=== PATIENT | female | born 1970 | race Caucasian/White ===

== ENCOUNTER → 2025-03-24 10:12 | Outpatient (REF) | payer BC, SELFPAY | LOC: RAD 10:12 | PROVIDERS: ATTENDING PHYSICIAN Chiropractor | DX: S13.4XXA Sprain of ligaments of cervical spine, initial encounter (principal); S33.5XXA Sprain of ligaments of lumbar spine, initial encounter; S23.3XXA Sprain of ligaments of thoracic spine, initial encounter | CPT/HCPCS: 72040; 72072; 72100 ==

== ENCOUNTER → 2025-10-06 14:03 | Outpatient (REF) | payer BC, SELFPAY | LOC: RAD 14:03 | PROVIDERS: ATTENDING PHYSICIAN Neurological Surgery | DX: M54.12 Radiculopathy, cervical region (principal) | CPT/HCPCS: 72040 ==